=== PATIENT | female | born 1995 | race Caucasian/White ===

== ENCOUNTER 2020-07-16 10:55 | Outpatient (CLI) | payer OTHER | END 2020-07-16 10:56 | disposition home or self-care (01) | LOC: CSHULT 10:55 | PROVIDERS: ATTEND Nurse Practitioner Family | DX: N63.10 Unspecified lump in the right breast, unspecified quadrant (principal) ==

== ENCOUNTER 2021-02-04 07:15 | Outpatient (CLI) | payer MEDICAID | END 2021-02-04 07:16 | disposition home or self-care (01) | LOC: CSHULT 07:15 | PROVIDERS: ATTEND Obstetrics & Gynecology | DX: N63.12 Unspecified lump in the right breast, upper inner quadrant (principal) ==